=== PATIENT | male | born 1945 | race Caucasian/White ===

== ENCOUNTER → 2018-07-01 | Outpatient (CLI) | payer MEDICARE, BC, OTHER ==
--- NOTE | 2018-07-02 08:23 | RADIOLOGY REPORT (SQ) ---
EXAM DESCRIPTION: PET CT SKULL/THIGH COMPLETED DATE/TIME: 07/01/2018 4:56 pm REASON FOR STUDY: SOLITARY PULMONARY NODULE R91.1 SOLITARY PULMONARY NODULE COMPARISON: CT chest 05/29/2018, [facility] CT chest 10/16/2012 CT abdomen pelvis 07/03/2009 RADIONUCLIDE AND DOSE: 10.8 mCi F18 FDG The route of agent administration: Intravenous FASTING BLOOD SUGAR: 94 mg/dl CONTRAST TYPE AND DOSE: No CT contrast given. TECHNIQUE: Blood glucose level was verified. Above dose of FDG was injected intravenously. 2-D seg mented attenuation correction images were obtained from the base of the skull to the midthighs. Nonc ontrast CT images were obtained for attenuation correction and fusion with emission images. CT image s were performed without oral or intravenous contrast and are not sensitive for parenchymal lesions. A series of overlapping emission PET images were obtained. Images reviewed and manipulated at [facility] work station by the radiologist. Images stored on PACS. LIMITATIONS: None. FINDINGS: HEAD AND NECK: No areas of abnormal metabolic activity in the soft tissues of the head and neck. CHEST: A 10 mm soft tissue density noncalcified nodule is present in the left posterior lower lobe on axial image 106. This is non metabolic on PET-CT. Multiple small metabolically active mediastinal lymph nodes are present as follows: Right paratracheal 1.5 x 1 cm axial image 82, SUV 2.7 Right hilar 1.4 x 1 cm lymph node axial image 91, SUV 3.5 AP window 1.3 x 0.7 cm lymph node axial image 86, SUV 2.8 Left hilar 0.9 x 0.7 cm lymph node axial image 88, SUV 2.7 ABDOMEN AND PELVIS: No areas of abnormal metabolic activity in the abdomen or pelvis. Expected physi ologic activity is present in the genitourinary system and bowel. PROXIMAL LOWER EXTREMITIES: No areas of abnormal metabolic activity in the soft tissues of the lower extremities. BONES: No abnormal metabolic activity in the visualized skeleton. ADDITIONAL CT FINDINGS: Coronary artery calcifications. Hiatal hernia. Bibasilar bandlike scarring. Multiple left renal cortical cysts. 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 Neurostimulator battery pack over the left gluteal region OTHER: Liver background activity 2.3 SUV. Blood pool background activity 1.7 SUV IMPRESSION: Non metabolic 10 mm lung nodule, posterior left lower lobe. Metabolically active mediastinal lymph nodes as above, nonspecific TECHNICAL DOCUMENTATION: JOB ID: [id number] [employer]- All Rights Reserved Reading location - IP/workstation name: [email or web address]
== END ==
LOC: RAD 14:36
PROVIDERS: ATTEND Family Medicine
DX: R91.8 Other nonspecific abnormal finding of lung field (principal)
CPT/HCPCS: 78815; A9552

== ENCOUNTER → 2018-08-13 | Outpatient (CLI) | payer MEDICARE, BC, OTHER ==
--- NOTE | 2018-08-13 12:06 | RADIOLOGY REPORT (SQ) ---
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 Coronal T2/ HASTE imaging. LIMITATIONS: None. FINDINGS: VISUALIZED UPPER ABDOMEN: Limited evaluation. No acute or suspicious findings suggested. SEGMENTATION: No transitional anatomy. The lowest well-developed disc space is labeled L5-S1. ALIGNMENT: Mild retrolisthesis of L2 over L3. VERTEBRAE: Intact. BONE MARROW: Normal. No marrow replacement or reactive changes. DISC SIGNAL: Diffuse decreased T2 weighted intervertebral disc signal. Disc space loss of height at L1-2, L2-3, L4-5 POSTERIOR ELEMENTS: Generally intact. No pars defect evident. HARDWARE: Dorsal column stimulator electrode leads enter the spinal canal along the L1-2 interlaminar spaces. Electrodes are outside of the field of view CORD AND CONUS: Normal in size and signal intensity. Conus at the appropriate level. SOFT TISSUES: No aortic aneurysm seen. No bulky retroperitoneal adenopathy or mass. No paraspinal mas s or fluid. T12-L1: At the upper edge of the field of view. Mild diffuse posterior disc bulging is present with bilateral facet arthropathy. Borderline central canal narrowing, mild bilateral foraminal narrowing . L1-L2: Broad diffuse posterior disc bulging, moderate bilateral facet hypertrophy. Moderate central canal stenosis with partial effacement of the CSF around the lumbar nerve roots, best shown on axial T2 image 4. There is mild bilateral inferior foraminal narrowing without exit L1 nerve root impingem ent. L2-L3: Mild central canal stenosis results from broad diffuse posterior disc bulging, minimal retroli sthesis of L2 over L3, and moderate bilateral facet and ligament hypertrophy. Partial effacement of the CSF around the lumbar nerve roots. There is mild bilateral inferior foraminal narrowing without exit L2 nerve root impingement. L3-L4: Mild diffuse posterior disc bulge and bony spurring, moderate bilateral facet and ligament hyp ertrophy. Borderline central canal narrowing. Mild to moderate bilateral inferior foraminal narrowi ng without exit L3 nerve root impingement. L4-L5: Broad diffuse posterior disc bulge and bony spurring is present with small right and left para central disc herniations with inferior migration of the extruded material. These findings along with mild facet and ligament hypertrophy cause mild central canal narrowing. There is flattening of the thecal sac at the takeoff of the proximal right and left L5 nerve roots in the lateral recess. This is best shown on axial T2 images 21-23. Elsewhere at L4-5, moderate bilateral foraminal narrowing results from facet and uncovertebral hypert rophy. No definite exiting L4 nerve root impingement. L5-S1: Mild bilateral facet hypertrophy is present. No central canal narrowing. Mild bilateral fora jonathan narrowing. SACRUM: Visualized upper sacrum intact. OTHER: No other significant findings. IMPRESSION: Multilevel significant central and foraminal stenosis as above. TECHNICAL DOCUMENTATION: JOB ID: [id number] [employer]- All Rights Reserved Reading location - IP/workstation name: [email or web address]
== END ==
LOC: RAD 10:55
PROVIDERS: ATTEND Family Medicine
DX: G83.11 Monoplegia of lower limb affecting right dominant side (principal); M48.061 Spinal stenosis, lumbar region without neurogenic claudication
CPT/HCPCS: 72148

== ENCOUNTER 2019-01-08 22:07 | Emergency (ER) | payer MEDICARE, BC, OTHER ==
--- NOTE | 2019-01-08 23:20 | ER Document Report ---
ED Medical Screen (RME) - General Chief Complaint: Possible Kidney Stone Stated Complaint: RIGHT SIDE POSSIBLE KIDNEY STONE Time Seen by Provider: 01/08/19 23:10 Primary Care Provider: MARGOT SANDERS MD [Primary Care Provider] - Follow up as needed Notes: Patient is a 73-year-old male with a history of hypertension, high cholesterol, nerve pain, and prostate cancer who presents to the emergency department with a chief complaint of right flank pain. Patient states that tonight he was sitting in a chair at home when he developed acute onset of right flank pain. Patient states he has not had any issues urinating. Patient denies blood in the urine. Patient denies nausea or vomiting. Patient states he did take to Demerol at home which did not help with his pain. Patient states he has had multiple kidney stones in the past and that it feels the same. TRAVEL OUTSIDE OF THE [place] IN LAST 30 DAYS: No - Related Data Allergies/Adverse Reactions: acetaminophen [From Percocet] Allergy (Verified 10/16/12 09:46) latex [Latex] Allergy (Verified 02/10/14 22:32) oxycodone HCl [From Percocet] Allergy (Verified 10/16/12 09:46) Past Medical History - Social History Chew tobacco use (# tins/day): No Frequency of alcohol use: None Drug Abuse: None - Past Medical History Cardiac Medical History: Reports: Hx Hypercholesterolemia, Hx Hypertension Endocrine Medical History: Denies: Hx Diabetes Mellitus Type 2 Renal/ Medical History: Reports: Hx Kidney Stones. Denies: Hx Peritoneal Dialysis GI Medical History: Denies: Hx Gastritis, Hx Gastroesophageal Reflux Disease Past Surgical History: Reports: Hx Neurologic Surgery - spinal cord stimulator, Hx Orthopedic Surgery - left hip Physical Exam - Vital signs Vitals: Temp Pulse Resp BP Pulse Ox 97.7 F 67 21 H 165/83 H 93 01/08/19 22:10 01/08/19 22:10 01/08/19 22:10 01/08/19 22:10 01/08/19 22:10 - Respiratory Respiratory status: No respiratory distress Chest status: Nontender Breath sounds: Normal Chest palpation: Normal - Back Back: CVA tenderness Notes: Right CVA tenderness, + right paraspinal tenderness. Course - Re-evaluation Re-evalutation: 01/08/19 23:23 I have greeted and performed a rapid initial assessment of this patient. A comprehensive ED assessment and evaluation of the patient, analysis of test results and completion of the medical decision making process will be conducted by additional ED providers. - Vital Signs Vital signs: Temp Pulse Resp BP Pulse Ox 97.7 F 67 21 H 165/83 H 93 01/08/19 22:10 01/08/19 22:10 01/08/19 22:10 01/08/19 22:10 01/08/19 22:10 - Laboratory Result Diagrams: 01/08/19 23:10 01/08/19 23:10 Doctor's Discharge - Discharge Referrals: MARGOT SANDERS MD [Primary Care Provider] - Follow up as needed
[2019-01-08] MEDS ORDERED: KETOROLAC TROMETHAMINE INJ/PF 30 MG/1 ML SDV IM ONE (23:24)
[2019-01-08] MEDS ORDERED: HYDROCODONE/ACETAMINOPHEN 5-325 MG TABLET PO ONE (23:24)
[2019-01-08 23:29] LABS: ABSOLUTE EOSINOPHILS # (AUTO) 0.3 10^3/uL (0.0-0.6); ABSOLUTE LYMPHOCYTES (AUTO) 0.7 10^3/uL (0.5-4.7); ABSOLUTE MONOCYTES (AUTO) 0.5 10^3/uL (0.1-1.4); ABSOLUTE NEUT (AUTO) 6.1 10^3/uL (1.7-8.2); BASOPHILS % (AUTO) 0.4 % (0-2); EOSINOPHILS % (AUTO) 4.5 % (0-6); HEMATOCRIT 46.1 % (37.9-51.0); HEMOGLOBIN 15.6 g/dL (13.5-17.0); LYMPHOCYTES % (AUTO) 9.4 % (13-45); MEAN CORPUSCULAR HEMOGLOBIN 30.9 pg (27.0-33.4); MEAN CORPUSCULAR HGB CONC 33.9 g/dL (32.0-36.0); MEAN CORPUSCULAR VOLUME 91 fl (80-97); MONOCYTES % (AUTO) 6.6 % (3-13); PLATELET COUNT 249 10^3/uL (150-450); RED BLOOD COUNT 5.05 10^6/uL (4.35-5.55); RED CELL DISTRIBUTION WIDTH 13.3 % (11.5-14.0); SEGMENTED NEUTROPHILS % (AUTO) 79.1 % (42-78); TOTAL CELLS COUNTED % (AUTO) 100 %; WHITE BLOOD COUNT 7.7 10^3/uL (4.0-10.5)
[2019-01-08 23:37] LABS: ALANINE AMINOTRANSFERASE 41 U/L (21-72); ALBUMIN 4.2 g/dL (3.5-5.0); ALKALINE PHOSPHATASE 41 U/L (38-126); ANION GAP 8 (5-19); ASPARTATE AMINO TRANSFERASE 44 U/L (17-59); BILIRUBIN,DIRECT 0.3 mg/dL (0.0-0.4); BILIRUBIN,TOTAL 0.5 mg/dL (0.2-1.3); BLOOD UREA NITROGEN 29 mg/dL (7-20); CALCIUM 9.7 mg/dL (8.4-10.2); CARBON DIOXIDE 30 mmol/L (22-30); CHLORIDE 103 mmol/L (98-107); GLUCOSE 124 mg/dL (75-110); LIPASE 108.7 U/L (23-300); POTASSIUM 4.5 mmol/L (3.6-5.0); SODIUM 141.2 mmol/L (137-145); TOTAL PROTEIN 6.5 g/dL (6.3-8.2)
[2019-01-09 00:10] LABS: APPEARANCE,URINE SLIGHTLY-CLOUDY; BILIRUBIN,URINE NEGATIVE (NEGATIVE); COLOR,URINE YELLOW; GLUCOSE, URINE NEGATIVE (NEGATIVE); KETONES,URINE NEGATIVE (NEGATIVE); LEUKOCYTE ESTERASE,URINE NEGATIVE (NEGATIVE); NITRITE,URINE NEGATIVE (NEGATIVE); PROTEIN,URINE NEGATIVE (NEGATIVE); UROBILINOGEN,URINE NEGATIVE mg/dL (<2.0)
--- NOTE | 2019-01-09 02:54 | RADIOLOGY REPORT (SQ) ---
EXAM DESCRIPTION: CT ABDOMEN PELVIS WITHOUT IV CONTRAST COMPLETED DATE/TME: 01/09/2019 00:25 CLINICAL HISTORY: 73 years, Male, right flank pain, hematuria COMPARISON: None. TECHNIQUE: Axial images of the abdomen and pelvis were performed without the use of intravenous contrast, with sagittal and coronal reformatted images. Images stored on PACS. All CT scanners at this facility use dose modulation, iterative reconstruction, and/or weight based dosing when appropriate to reduce radiation dose to as low as reasonably achievable (ALARA). [facility]: Dose Right [facility]: CareDose [facility]: Dose Right [facility]: Teradose 4D [facility]: [employer] LIMITATIONS: None. FINDINGS: There is a 3.4 x 2 x 1.5 mm stone, in the proximal right ureter, with mild hydronephrosis. There are no renal stones. There is left renal cortical scarring. There are left renal cysts. There are atherosclerotic changes involving the abdominal aorta, but there is no aneurysm. There is fatty infiltration of the liver. There is a 2.1 cm right adrenal nodule. This nodule measures 2.2 Hounsfield units. 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 No follow-up imaging is recommended. The appendix appears normal. No evidence of bowel obstruction. There is no significant radiographic abnormality of the spleen, pancreas or left adrenal gland. There is mild bibasilar scarring/platelike atelectasis. IMPRESSION: Proximal right ureteral stone. Other findings as described. TECHNICAL DOCUMENTATION: Quality ID # [id number]: Final reports with documentation of one or more dose reduction techniques (e.g., Automated exposure control, adjustment of the mA and/or kV according to patient size, use of iterative reconstruction technique) copyright 2011 [employer]- All Rights Reserved
[2019-01-09] MEDS ORDERED: ONDANSETRON ODT 4 MG TAB (6 TAB/ER DISP) PO PRN (04:00)
[2019-01-09] MEDS ORDERED: HYDROCODONE/ACETAMINOPHEN 5-325 MG (6 TAB/ER DISP) PO PRN (04:00)
[2019-01-09] MEDS ORDERED: TAMSULOSIN HCL 0.4 MG CAP.SR.24H PO ONE (04:01)
--- NOTE | 2019-01-09 04:03 | ER Document Report ---
ED General - General Chief Complaint: Possible Kidney Stone Stated Complaint: RIGHT SIDE POSSIBLE KIDNEY STONE Time Seen by Provider: 01/08/19 23:10 Primary Care Provider: MARGOT SANDERS MD [Primary Care Provider] - Follow up as needed Notes: Patient is a 73-year-old male with past medical history of kidney stones who presents with acute onset of right flank pain radiating into his right lower abdomen. Patient states that the pain started abruptly several hours ago and has been worsening since onset. States that it comes in waves. No exacerbating or alleviating factor. Pain is regarded as being severe. States this feels very similar to when he had a kidney stone in the past. He denies fever or constitutional symptoms. Has not seen his primary care physician regarding today's concerns. TRAVEL OUTSIDE OF THE [place] IN LAST 30 DAYS: No - Related Data Allergies/Adverse Reactions: acetaminophen [From Percocet] Allergy (Verified 10/16/12 09:46) latex [Latex] Allergy (Verified 02/10/14 22:32) oxycodone HCl [From Percocet] Allergy (Verified 10/16/12 09:46) Past Medical History - General Information source: Patient - Social History Smoking Status: Never Smoker Chew tobacco use (# tins/day): No Frequency of alcohol use: None Drug Abuse: None Lives with: Family Family History: Reviewed & Not Pertinent Patient has suicidal ideation: No Patient has homicidal ideation: No - Past Medical History Cardiac Medical History: Reports: Hx Hypercholesterolemia, Hx Hypertension Endocrine Medical History: Denies: Hx Diabetes Mellitus Type 2 Renal/ Medical History: Reports: Hx Kidney Stones. Denies: Hx Peritoneal Dialysis GI Medical History: Denies: Hx Gastritis, Hx Gastroesophageal Reflux Disease Past Surgical History: Reports: Hx Neurologic Surgery - spinal cord stimulator, Hx Orthopedic Surgery - left hip Review of Systems - Review of Systems Notes: Constitutional: Negative for fever. HENT: Negative for sore throat. Eyes: Negative for visual changes. Cardiovascular: Negative for chest pain. Respiratory: Negative for shortness of breath. Gastrointestinal: Negative for abdominal pain, positive for nausea Genitourinary: Negative for dysuria. Musculoskeletal: Positive for right flank pain Skin: Negative for rash. Neurological: Negative for headaches, weakness or numbness. 10 point ROS negative except as marked above and in HPI. Physical Exam - Vital signs Vitals: Temp Pulse Resp BP Pulse Ox 97.7 F 67 21 H 165/83 H 93 01/08/19 22:10 01/08/19 22:10 01/08/19 22:10 01/08/19 22:10 01/08/19 22:10 Interpretation: Hypertensive Notes: PHYSICAL EXAMINATION: GENERAL: Well-appearing, well-nourished and in no acute distress. HEAD: Atraumatic, normocephalic. EYES: Pupils equal round and reactive to light, extraocular movements intact, sclera anicteric, conjunctiva are normal. ENT: nares patent, oropharynx clear without exudates. Moist mucous membranes. NECK: Normal range of motion, supple without lymphadenopathy LUNGS: Breath sounds clear to auscultation bilaterally and equal. No wheezes rales or rhonchi. HEART: Regular rate and rhythm without murmurs ABDOMEN: Soft, right CVA tenderness, abdomen is otherwise nontender, normoactive bowel sounds. No guarding, no rebound. No masses appreciated. EXTREMITIES: Normal range of motion, no pitting or edema. No cyanosis. NEUROLOGICAL: No focal neurological deficits. Moves all extremities spontaneously and on command. PSYCH: Normal mood, normal affect. SKIN: Warm, Dry, normal turgor, no rashes or lesions noted. Course - Re-evaluation Re-evalutation: 01/09/19 04:00 Presents with findings consistent with acute nephrolithiasis. CT does confirm right-sided kidney stone. Urinalysis does show hematuria. Laboratory otherwise unremarkable. Pain was able to be controlled here in the emergency department. Patient is tolerating oral intake. Clinical history is not consistent with an acute abdominal aneurysm or dissection, [place], or pulmonary embolus. Urinalysis does not show findings consistent with an infected stone. Vitals have remained within normal limits. Patient will be discharged with recommendations to follow-up with urology, pain medications, and return precautions. They are in agreement with this plan and verbalized indications return to emergency department. - Vital Signs Vital signs: Temp Pulse Resp BP Pulse Ox 97.7 F 67 21 H 165/83 H 93 01/08/19 22:10 01/08/19 22:10 01/08/19 22:10 01/08/19 22:10 01/08/19 22:10 - Laboratory Result Diagrams: 01/08/19 23:10 01/08/19 23:10 Laboratory results interpreted by me: 01/08/19 01/08/19 01/08/19 23:10 23:10 23:40 Seg Neutrophils % 79.1 H Lymphocytes % 9.4 L BUN 29 H Creatinine 1.46 H Est GFR ( Amer) 57 L Est GFR (Non-Af Amer) 47 L Glucose 124 H Urine Blood MODERATE H - Diagnostic Test Radiology reviewed: Reports reviewed Discharge - Discharge Clinical Impression: Kidney stone on right side, Right flank pain Condition: Good Disposition: HOME, SELF-CARE Additional Instructions: Your symptoms should improve over the course of the next one week. If you continue to have pain for greater than one week or your pain is not controlled with the pain medications that you have been sent home with you need to return to the emergency department. Please also return if you develop fever, persistent vomiting, or any other symptoms that are concerning to you. You should take ibuprofen 600 mg every 6 hours and use the oral [place] as prescribed only for pain not controlled by ibuprofen. You are also been sent home with a medication called Flomax to help pass the stone. You've been given Zofran to assist with nausea. Please follow-up with urology in the next 2-3 days. Prescriptions: Tamsulosin HCl [Flomax 0.4 mg Cap.sr] 0.4 mg PO DAILY #7 cap.sr.24h Referrals: MARGOT SANDERS MD [Primary Care Provider] - Follow up as needed
[2019-01-09 04:47] VITALS: BP 164/78
== END 2019-01-09 04:45 | disposition home or self-care (01) ==
LOC: ER 22:07
DX: N13.2 Hydronephrosis with renal and ureteral calculous obstruction (principal); R31.9 Hematuria, unspecified; R10.9 Unspecified abdominal pain; I10 Essential (primary) hypertension; Z91.040 Latex allergy status; Z88.8 Allergy status to other drugs, medicaments and biological substances; Z88.5 Allergy status to narcotic agent
CPT/HCPCS: 99284; 96372; 36415; 83690; 85025; 80053; 81001; 74176; J1885; A9270 ×4